=== PATIENT | female | born 2000 | race Two or more races ===

== ENCOUNTER 2022-12-14 15:48 | Outpatient (CLI) | payer OTHER | END 2022-12-14 16:55 | disposition home or self-care (01) | LOC: PRENATAL 15:48 | PROVIDERS: ATTEND Obstetrics & Gynecology Maternal & Fetal Medicine | DX: O35.9XX0 Maternal care for (suspected) fetal abnormality and damage, unspecified, not applicable or unspecified (principal); O35.3XX0 Maternal care for (suspected) damage to fetus from viral disease in mother, not applicable or unspecified; Z3A.18 18 weeks gestation of pregnancy ==

== ENCOUNTER 2023-03-10 15:14 | Outpatient (CLI) | payer OTHER | END 2023-03-10 16:18 | disposition home or self-care (01) | LOC: PRENATAL 15:14 | PROVIDERS: ATTEND Obstetrics & Gynecology Maternal & Fetal Medicine | DX: O26.849 Uterine size-date discrepancy, unspecified trimester (principal); O36.8199 Decreased fetal movements, unspecified trimester, other fetus; Z3A.30 30 weeks gestation of pregnancy ==

== ENCOUNTER 2023-04-09 10:38 | Outpatient (CLI) | payer OTHER | END 2023-04-09 11:35 | disposition home or self-care (01) | LOC: PRENATAL 10:38 | PROVIDERS: ATTEND Obstetrics & Gynecology Maternal & Fetal Medicine | DX: O26.849 Uterine size-date discrepancy, unspecified trimester (principal); O36.8199 Decreased fetal movements, unspecified trimester, other fetus; Z3A.35 35 weeks gestation of pregnancy ==

== ENCOUNTER 2023-05-16 01:17 | Inpatient (IN) | payer OTHER ==
[~2023-05-16] VITALS: Ht 170.2 cm; Wt 3.2 kg
[2023-05-16] MEDS ORDERED: PRENATAL + DHA1 EAC1 PO (01:31)
== END 2023-05-19 17:38 | disposition home or self-care (01) | DRG 788 ==
LOC: OB/GYN 01:17 → LDR 01:17 → OB/GYN 12:56
PROVIDERS: ADMIT Obstetrics & Gynecology Obstetrics; ATTEND Obstetrics & Gynecology Obstetrics
PROC: 4A1HXCZ Monitoring of Products of Conception, Cardiac Rate, External Approach (ICD-10-PCS; 2023-05-16)
PROC: 10D00Z1 Extraction of Products of Conception, Low, Open Approach (ICD-10-PCS; principal; 2023-05-16 11:00)
DX: O62.1 Secondary uterine inertia (principal); Z3A.40 40 weeks gestation of pregnancy; Z37.0 Single live birth; Z20.822 Contact with and (suspected) exposure to COVID-19